=== PATIENT | female | born 1955 | race Caucasian/White ===

== ENCOUNTER 2018-05-23 18:12 | Emergency (ER) | payer OTHER, MEDICARE ==
[~2018-05-23] VITALS: Ht 162.6 cm; Wt 68.2 kg
[~2018-05-23 18:12] MED LIST: ALPRAZOLA1 PO; FISH OIL1 CAP PO; FLONASE NASAL50 MCG; LORTAB 1010 MG PO; LOVASTATIN10 M1 PO; MUCINEX600 MG PO; MULTIVITAMI1 PO; NYSTATIN100000 M1 PO; SOMA350 MG PO
[2018-05-23 19:31] LABS: HEMOGLOBIN 16.1 g/dl (12.0-16.0); IMMATURE GRANULOCYTES 0.2 % (0.0-5.0); MEAN CELL VOLUME 92.8 fL CALC (80.0-100.0); MEAN CORPUSCULAR HGB 31.1 pG CALC (26.0-32.0); MEAN CORPUSCULAR HGB CONC 33.5 g/L CALC (32.0-36.0); NEUT# 3.66 thou/uL (2.00-7.15); RED BLOOD COUNT 5.17 mill/uL (4.20-5.60); RED CELL DISTRI WIDTH 12.2 % (11.5-15.5)
[2018-05-23 19:44] LABS: ALBUMIN 4.6 g/dL (3.2-5.0); ALKALINE PHOSPHATASE 68 u/l (38-126); ANION GAP 15 (6-22 (CALC)); BILIRUBIN, TOTAL 0.5 mg/dL (0.0-1.4); BUN 10 mg/dL (8-23); BUN/CREATININE RATIO 20 (12-20 (CALC)); CARBON DIOXIDE 24 mmol/l (22-30); CHLORIDE 103 mmol/l (95-108); CREATININE 0.5 mg/dL (0.5-1.0); GFR > 60 ML/MIN (>=60 (CALC)); GFR FOR AFR.AMER. > 60 ML/MIN (>=60 (CALC)); LIPASE 39 u/l (23-300); POTASSIUM 3.9 mmol/l (3.5-5.1); SGOT/AST 32 u/l (9-36); SODIUM 138 mmol/l (137-146); TOTAL PROTEIN 7.3 g/dL (6.3-8.2)
[2018-05-23 20:04] LABS: URINE BILIRUBIN - DIPSTICK NEGATIVE (NEGATIVE); URINE BLOOD DIPSTICK TRACE-INTACT (NEGATIVE); URINE COLOR YELLOW; URINE GLUCOSE - DIPSTICK NEGATIVE (NEGATIVE); URINE KETONE NEGATIVE (NEGATIVE); URINE LEUK ESTERASE NEGATIVE (NEGATIVE); URINE NITRITE - DIPSTICK NEGATIVE (Negative); URINE PH 5.5 (4.5-8.0); URINE PROTEIN - DIPSTICK NEGATIVE (NEG-TRACE); URINE UROBILINOGEN - DIPSTICK 0.2 E.U./dL (0.2)
[2018-05-23 21:13] VITALS: BP 128/81
== END 2018-05-23 21:18 | disposition home or self-care (01) | DRG 552 ==
LOC: ED 18:12
PROVIDERS: Family Medicine
DX: S16.1XXA Strain of muscle, fascia and tendon at neck level, initial encounter (principal); S29.011A Strain of muscle and tendon of front wall of thorax, initial encounter; S39.011A Strain of muscle, fascia and tendon of abdomen, initial encounter; T14.8XXA Other injury of unspecified body region, initial encounter; M62.838 Other muscle spasm; E78.5 Hyperlipidemia, unspecified; F17.290 Nicotine dependence, other tobacco product, uncomplicated; V43.52XA Car driver injured in collision with other type car in traffic accident, initial encounter
CPT/HCPCS: Q9967

== ENCOUNTER 2018-09-01 09:26 | Emergency (ER) | payer MEDICARE ==
[~2018-09-01] VITALS: Ht 162.6 cm; Wt 67.0 kg
[2018-09-01] MEDS ORDERED: DICLOFENAC50 MG PO (10:12)
[2018-09-01 10:14] VITALS: BP 121/84
== END 2018-09-01 10:20 | disposition home or self-care (01) ==
LOC: ED 09:26
DX: J02.9 Acute pharyngitis, unspecified (principal); F17.210 Nicotine dependence, cigarettes, uncomplicated

== ENCOUNTER 2018-11-05 08:38 | Emergency (ER) | payer MEDICARE ==
[~2018-11-05] VITALS: Ht 162.6 cm; Wt 64.1 kg
[~2018-11-05 08:38] MED LIST changes: +DICLOFENAC50 MG PO
[2018-11-05] MEDS ORDERED: ASPIRIN ADULT L81 M2 PO (08:51)
[2018-11-05] MEDS ORDERED: ZOFRAN4 MG/TAB PO (08:52)
[2018-11-05 09:46] LABS: URINE BILIRUBIN - DIPSTICK NEGATIVE (NEGATIVE); URINE BLOOD DIPSTICK TRACE-INTACT (NEGATIVE); URINE COLOR YELLOW; URINE GLUCOSE - DIPSTICK NEGATIVE (NEGATIVE); URINE KETONE NEGATIVE (NEGATIVE); URINE LEUK ESTERASE NEGATIVE (NEGATIVE); URINE NITRITE - DIPSTICK NEGATIVE (Negative); URINE PH 7.5 (4.5-8.0); URINE PROTEIN - DIPSTICK NEGATIVE (NEG-TRACE); URINE UROBILINOGEN - DIPSTICK 0.2 E.U./dL (0.2)
[2018-11-05 09:51] LABS: ALBUMIN 3.9 g/dL (3.2-5.0); ALKALINE PHOSPHATASE 78 u/l (38-126); BILIRUBIN, TOTAL 0.3 mg/dL (0.0-1.4); BUN 4 mg/dL (8-23); BUN/CREATININE RATIO 7 (12-20 (CALC)); CHLORIDE 97 mmol/l (95-108); CREATININE 0.5 mg/dL (0.5-1.0); GFR > 60 ML/MIN (>=60 (CALC)); GFR FOR AFR.AMER. > 60 ML/MIN (>=60 (CALC)); LIPASE 36 u/l (23-300); POTASSIUM 3.9 mmol/l (3.5-5.1); SGOT/AST 27 u/l (9-36); SODIUM 134 mmol/l (137-146); TOTAL PROTEIN 6.8 g/dL (6.3-8.2)
[2018-11-05 09:52] LABS: ANION GAP 10 (6-22 (CALC)); CARBON DIOXIDE 31 mmol/l (22-30)
[2018-11-05 09:54] LABS: RED BLOOD COUNT 4.24 mill/uL (4.20-5.60)
[2018-11-05 09:55] LABS: HEMATOCRIT 38.7 % (37.0-47.0); HEMOGLOBIN 13.1 g/dl (12.0-16.0); IMMATURE GRANULOCYTES 0.5 % (0.0-5.0); MEAN CELL VOLUME 91.3 fL CALC (80.0-100.0); MEAN CORPUSCULAR HGB 30.9 pG CALC (26.0-32.0); MEAN CORPUSCULAR HGB CONC 33.9 g/L CALC (32.0-36.0); NEUT# 0.17 thou/uL (2.00-7.15); RED CELL DISTRI WIDTH 11.6 % (11.5-15.5)
[2018-11-05] MEDS ORDERED: AMOX/K CLAV875 M1 PO (11:00)
[2018-11-05] MEDS ORDERED: LEVAQUIN750 M1 PO (11:00)
[2018-11-05 11:05] VITALS: BP 96/58
== END 2018-11-05 11:14 | disposition left against medical advice (07) ==
LOC: ED 08:38
PROVIDERS: Family Medicine
DX: D70.9 Neutropenia, unspecified (principal); R50.81 Fever presenting with conditions classified elsewhere; C80.1 Malignant (primary) neoplasm, unspecified; Z92.3 Personal history of irradiation; Z93.1 Gastrostomy status; Z91.19 Patient's noncompliance with other medical treatment and regimen
CPT/HCPCS: J0692

== ENCOUNTER 2018-12-18 10:51 | Emergency (ER) | payer MEDICARE ==
[~2018-12-18] VITALS: Ht 162.6 cm; Wt 45.0 kg
[~2018-12-18 10:51] MED LIST changes: +AMOX/K CLAV875 M1 PO; +ASPIRIN ADULT L81 M2 PO; +LEVAQUIN750 M1 PO; +ZOFRAN4 MG/TAB PO
[2018-12-18 11:53] LABS: HEMATOCRIT 33.2 % (37.0-47.0); HEMOGLOBIN 11.7 g/dl (12.0-16.0); IMMATURE GRANULOCYTES 3.1 % (0.0-5.0); MEAN CELL VOLUME 87.8 fL CALC (80.0-100.0); MEAN CORPUSCULAR HGB CONC 35.2 g/L CALC (32.0-36.0); NEUT# 2.06 thou/uL (2.00-7.15); RED BLOOD COUNT 3.78 mill/uL (4.20-5.60); RED CELL DISTRI WIDTH 14.1 % (11.5-15.5)
[2018-12-18 12:24] LABS: ANION GAP 17 (6-22 (CALC)); BUN 10 mg/dL (8-23); BUN/CREATININE RATIO 20 (12-20 (CALC)); CARBON DIOXIDE 27 mmol/l (22-30); CHLORIDE 93 mmol/l (95-108); CREATININE 0.5 mg/dL (0.5-1.0); GFR > 60 ML/MIN (>=60 (CALC)); GFR FOR AFR.AMER. > 60 ML/MIN (>=60 (CALC)); POTASSIUM 3.6 mmol/l (3.5-5.1); SODIUM 134 mmol/l (137-146)
[2018-12-18 13:50] VITALS: BP 133/65
== END 2018-12-18 14:07 | disposition home or self-care (01) ==
LOC: ED 10:51
PROVIDERS: Family Medicine
PROC: 2W22X4Z Dressing of Neck using Bandage (ICD-10-PCS; principal; 2018-12-18)
DX: R53.81 Other malaise (principal); T20.27XA Burn of second degree of neck, initial encounter; C7A.1 Malignant poorly differentiated neuroendocrine tumors; Y84.2 Radiological procedure and radiotherapy as the cause of abnormal reaction of the patient, or of later complication, without mention of misadventure at the time of the procedure; Z79.899 Other long term (current) drug therapy

== ENCOUNTER 2018-12-24 11:21 | Emergency (ER) | payer MEDICARE ==
[~2018-12-24] VITALS: Ht 162.6 cm; Wt 55.0 kg
[2018-12-24 12:52] LABS: HEMATOCRIT 23.6 % (37.0-47.0); HEMOGLOBIN 8.5 g/dl (12.0-16.0); IMMATURE GRANULOCYTES 2.2 % (0.0-5.0); MEAN CELL VOLUME 84.6 fL CALC (80.0-100.0); MEAN CORPUSCULAR HGB 30.5 pG CALC (26.0-32.0); NEUT# 0.2 thou/uL (2.00-7.15); RED BLOOD COUNT 2.79 mill/uL (4.20-5.60); RED CELL DISTRI WIDTH 13.4 % (11.5-15.5)
[2018-12-24 13:05] LABS: ALBUMIN 3.5 g/dL (3.2-5.0); ALKALINE PHOSPHATASE 70 u/l (38-126); ANION GAP 18 (6-22 (CALC)); BUN 5 mg/dL (8-23); BUN/CREATININE RATIO 12 (12-20 (CALC)); CARBON DIOXIDE 27 mmol/l (22-30); CHLORIDE 88 mmol/l (95-108); CREATININE 0.4 mg/dL (0.5-1.0); GFR > 60 ML/MIN (>=60 (CALC)); GFR FOR AFR.AMER. > 60 ML/MIN (>=60 (CALC)); LIPASE 16 u/l (23-300); POTASSIUM 2.9 mmol/l (3.5-5.1); SGOT/AST 24 u/l (9-36); SODIUM 130 mmol/l (137-146); TOTAL PROTEIN 6.3 g/dL (6.3-8.2)
[2018-12-24 13:06] LABS: BILIRUBIN, TOTAL 1.1 mg/dL (0.0-1.4)
[2018-12-24 14:57] VITALS: BP 100/50
== END 2018-12-24 16:37 ==
LOC: ED 11:21
DX: C32.1 Malignant neoplasm of supraglottis (principal); D70.1 Agranulocytosis secondary to cancer chemotherapy; T45.1X5A Adverse effect of antineoplastic and immunosuppressive drugs, initial encounter; R50.9 Fever, unspecified; E87.6 Hypokalemia; Z92.3 Personal history of irradiation; Z93.1 Gastrostomy status

== ENCOUNTER 2021-03-21 06:39 | Day surgery (SDC) | payer MEDICARE ==
[~2021-03-21] VITALS: Ht 162.6 cm; Wt 76.2 kg
[~2021-03-21 06:39] MED LIST changes: +MULTI 50+ PO
[2021-03-21 09:02] VITALS: BP 115/59
== END 2021-03-21 09:28 | disposition home or self-care (01) ==
LOC: ENDO 06:39 → ORM 10:00
PROVIDERS: ATTEND Surgery
PROC: 0DBH8ZX Excision of Cecum, Via Natural or Artificial Opening Endoscopic, Diagnostic (ICD-10-PCS; principal; 2021-03-21)
DX: Z12.11 Encounter for screening for malignant neoplasm of colon (principal); D12.0 Benign neoplasm of cecum; K57.30 Diverticulosis of large intestine without perforation or abscess without bleeding; K64.8 Other hemorrhoids; I10 Essential (primary) hypertension; Z85.818 Personal history of malignant neoplasm of other sites of lip, oral cavity, and pharynx; Z86.010 Personal history of colon polyps